=== PATIENT | male | born 1950 | race Caucasian/White ===

== ENCOUNTER 2024-12-29 15:14 | Outpatient (AMB) | payer MEDICARE, SELFPAY ==
--- OUTSIDE RECORDS SUMMARY | 2024-12-29 15:17 | XMS_ITS | Clinical Summary ---
Author Organization [facility] Address [address] [place] [phone] Phone Care Team Providers Care Broadcast Operations Director Name Role Phone Physician, Pcp Unknown Primary Care Provider Neena vailable Allergies No known active allergies Medications cloNIDine (CATAPRES) 0.1 mg tablet Take 1 tablet (0.1 mg total) by mouth 2 (two) times a day if needed for high blood pressure. Active fluticasone propion-salmet Kathrine (ADVAIR DISKUS) 100-50 mcg/dose diskus inhaler Inhale 1 puff by mouth 2 (two) times a day. Rinse mouth with water after use to reduce aftertaste and incidence of candidiasis. Do not swallow. Active levothyroxine (SYNTHROID, LEVOTHROID) 125 mcg tablet Take 1 tablet (125 mcg total) by mouth 1 (one) time each day. Active traZODone (DESYREL) 50 mg tablet Take 2 tablets (100 mg total) by mouth at bedtime. Active nicotine (NICODERM CQ) 7 mg/[address] 1 patch on the skin 1 (one) time per week. Active folic acid (FOLVITE) 1 mg tablet Take 1 tablet (1 mg total) by mouth 1 (one) time each day. Active pyridoxine (B-6) 50 mg tablet Take 1 tablet (50 mg total) by mouth 1 (one) time each day. Active thiamine 100 mg tablet Take 1 tablet (100 mg total) by mouth 2 (two) times a day. Active PARoxetine (PAXIL) 40 mg tablet Take 1 tablet (40 mg total) by mouth 1 (one) time each day. Active ipratropium-al buteroL (COMBIVENT RESPIMAT) 20-100 mcg/actuation inhaler Inhale 2 puffs by mouth 2 (two) times a day. Active simvastatin (ZOCOR) 20 mg tablet Take 1 tablet (20 mg total) by mouth 1 (one) time each day in the morning. Active finasteride (PROSCAR) 5 mg tablet Take 1 tablet (5 mg total) by mouth 1 (one) time each day. Do not crush, chew, or split. Active tamsulosin (FLOMAX) 0.4 mg 24 hr capsule Take 1 capsule (0.4 mg total) by mouth at bedtime. Capsules should be taken 30 minutes following the same meal each day. Active QUEtiapine (SEROquel) 25 mg tablet Take 1 tablet (25 mg total) by mouth at bedtime. 30 each 1 01/11/20 25 Active predniSONE (DELTASONE) 20 mg tablet Take 1 tablet (20 mg total) by mouth 1 (one) time each day. Start 12/03 take 3 tabs daily then 2 tabs daily for 3 days then 1 tab for 3 days 12/10/19 25 Discontinu ed(Prescri elenita Discontinu ed) Encounters Date Type Department Care Team Description 12/10/2024 11:10 AM EST - 12/11/2024 11:42 AM EST Emergency [facility] [address] [place] [phone] Anxiety (Primary Dx); MDD (major depressive disorder), recurrent episode, mild (CMS/HCC) Discharge Disposition: Home or Self Care from Last 3 Months Social History Tobacco Use Types Packs/Day Years Used Date Smoking Tobacco: Never Assessed Sex and Gender Information Value Date Recorded Sex Assigned at Not on file Legal Sex Male 5:04 AM EST Gender Identity Male 12/10/2024 12:22 PM EST Sexual Orientation Not on file Last Filed Vital Signs Vital Sign Reading Time Taken Comments Blood Pressure 123/86 12/10/2024 11:12 AM EST Pulse 98 12/10/2024 11:12 AM EST Temperature 36.4 ??C (97.5 ??F) 12/10/2024 11:[address] Respiratory Rate 18 12/10/2024 11:12 AM EST Oxygen Saturation 95% 12/10/2024 11:12 AM EST Inhaled Oxygen Concentration - - Weight 70.3 kg (155 lb) 12/10/2024 11:12 AM EST Height 170.2 cm (5' 7 ) 12/10/2024 11:12 AM EST Body Mass Index 24.28 12/10/2024 11:12 AM EST Plan of Treatment Health Maintenance Due Date Last Done Comments DTaP,Tdap,and Td Vaccines (1 - Tdap) 1969 Pneumococcal Vaccine: 50+ Years (1 of 2 - PCV) 1969 Zoster Vaccines (1 of 2) 2000 RSV Immunization Patients 60 + Years Old (1 - Risk 60-74 years 1-dose series) 2010 COVID-19 Vaccine ( - 2023-2 5 season) 2024 Influenza Vaccine (#1) 2024 Abdominal Aortic Aneurysm (AAA) Screen 12/10/2024 Cholesterol Screening (Lipid Panel) 12/10/2024 Depression Screening 12/10/2024 Falls Risk Assessment 12/10/2024 Hepatitis C Screening 12/10/2024 Medicare Annual Wellness Visit 12/10/2024 Social Influencers of Health Screening 12/10/2024 Colorectal Cancer Screening: FIT-DNA (Cologuard) 08/31/2027 08/31/2024, 08/31/2024, 08/14/2021 HIB Vaccines Aged Out No longer eligi ble based on patient's age to complete this topic HPV Vaccines Aged Out No longer eligi ble based on patient's age to complete this topic Hepatitis A Vaccines Aged Out No long er eligible based on patient's age to complete this topic Hepatitis B Vaccines Aged Out No long er eligible based on patient's age to complete this topic IPV Vaccines Aged Out No longer eligi ble based on patient's age to complete this topic MMR Vaccines Aged Out No longer eligi ble based on patient's age to complete this topic Meningococcal ACWY Vaccine Aged Out N o longer eligible based on patient's age to complete this topic Meningococcal B Vacine Aged Out No lo nger eligible based on patient's age to complete this topic RSV Immunization Patients Under 20 months Aged Out No longer eligible b ased on patient's age to complete this topic Varicella Vaccines Aged Out No longer eligible based on patient's age to complete this topic Procedures Procedure Name Priority Date/Time Associated Diagnosis Comments CONNOR URINE CULTURE TUBE STAT 12/10/2024 3:02 PM EST URINALYSIS WITH MICROSCOPIC STAT 12/10/2024 3:02 PM EST DRUG ABUSE SCREEN, URINE STAT 12/10/2024 3:02 PM EST URINALYSIS WITH MICROSCOPIC STAT 12/10/2024 3:02 PM EST CBC WITH AUTO DIFFERENTIAL STAT 12/10/2024 2:15 PM EST THYROID STIMULATING HORMONE STAT 12/10/2024 2:15 PM EST COMPREHENSIVE METABOLIC PANEL STAT 12/10/2024 2:15 PM EST CBC AND DIFFERENTIAL STAT 12/10/2024 2:15 PM EST from Last 3 Months Results * (ABNORMAL) Urinalysis with microscopic (12/10/2024 3:02 PM EST) Color, Urine Yellow Yellow LAB URINALYSIS - AUTOMATED METHOD 12/10/2024 4:34 PM EST [facility] Clarity, Urine Clear Clear LAB URINALYSIS - AUTOMATED METHOD 12/10/2024 4:34 PM EST [facility] Specific [place] Urine 1.026 1.003 - 1.030 LAB URINALYSIS - AUTOMATED METHOD 12/10/2024 4:34 PM EST [facility] pH, Urine 5.5 5.0 - 7.5 pH LAB URINALYSIS - AUTOMATED METHOD 12/10/2024 4:34 PM EST [facility] Leukocytes, Urine Negative Negative WBCs/mcL LAB URINALYSIS - AUTOMATED METHOD 12/10/2024 4:34 PM [facility] Nitrite, Urine Negative Negative LAB URINALYSIS - AUTOMATED METHOD 12/10/2024 4:34 PM [facility] Protein, Urine Trace(A) Negative mg/dL LAB URINALYSIS - AUTOMATED METHOD 12/10/2024 4:34 PM EST [facility] Glucose, Urine Negative Negative mg/dL LAB URINALYSIS - AUTOMATED METHOD 12/10/2024 4:34 PM EST [facility] Ketones, Urine 1+(A) Negative mg/dL LAB URINALYSIS - AUTOMATED METHOD 12/10/2024 4:34 PM EST [facility] Urobilinogen, Urine Normal Normal mg/dL LAB URINALYSIS - AUTOMATED METHOD 12/10/2024 4:34 PM EST [facility] Blood, Urine Negative Negative LAB URINALYSIS - AUTOMATED METHOD 12/10/2024 4:34 PM [facility] Bilirubin, Urine Negative Negative mg/dL LAB URINALYSIS - AUTOMATED METHOD 12/10/2024 4:34 PM EST [facility] RBC, Urine 0 0 - 3 /HPF LAB URINALYSIS - AUTOMATED METHOD 12/10/2024 4:34 PM EST [facility] WBC, Urine <1 0 - 6 /HPF LAB URINALYSIS - AUTOMATED METHOD 12/10/2024 4:34 PM EST [facility] Bacteria, Urine 1+(A) None /HPF LAB URINALYSIS - AUTOMATED METHOD 12/10/2024 4:34 PM EST [facility] Mucus, Urine 4+ No ref range /HPF LAB URINALYSIS - AUTOMATED METHOD 12/10/2024 4:34 PM [facility] Urine Urine specimen obtained by clean catch procedure / Unknown Non-blood Collection / Unknown 12/10/2024 3:02 PM EST 12/10/2024 3:09 PM EST us Sherly Castillo MD LAB URINE ORDERABLES Final Result [facility] [address] [place] [address], [place] [phone] * Connor urine culture tube (12/10/2024 3:02 PM EST) [facility] Extra Tube Hold for add-ons. 12/10/2024 5:02 PM EST [facility] Comment:Auto resulted. Urine Urine specimen obtained by clean catch procedure / Unknown Non-blood Collection / Unknown 12/10/2024 3:02 PM EST 12/10/2024 3:10 PM EST us Sherly Castillo MD LAB URINE ORDERABLES Final Result [facility] [address] [place] [address], [place] [phone] * Drug abuse screen, urine (12/10/2024 3:02 PM EST) [facility] Amphetamine Screen, Ur Negative Negative LAB CHEMISTRY METHOD 12/10/2024 3:37 PM EST [facility] Barbiturate Screen, Ur Negative Negative LAB CHEMISTRY METHOD 12/10/2024 3:37 PM EST [facility] Benzodiazepine Screen, Ur Negative Negative LAB CHEMISTRY METHOD 12/10/2024 3:37 PM EST [facility] Opiate Screen, Ur Negative Negative LAB CHEMISTRY METHOD 12/10/2024 3:37 PM EST [facility] Comment:NOTE: Oxycodone is n ot sufficiently detected by this screening assay. A more sensitive assay is available upon request. Cocaine Screen, Ur Negative Negative LAB CHEMISTRY METHOD 12/10/2024 3:37 PM EST [facility] Cannabinoid (THC) Screen, Ur Negative Negative LAB CHEMISTRY METHOD 12/10/2024 3:37 PM EST [facility] PCP Scrn, Ur Negative Negative LAB CHEMISTRY METHOD 12/10/2024 3:37 PM EST [facility] Urine Urine specimen obtained by clean catch procedure / Unknown Non-blood Collection / Unknown 12/10/2024 3:02 PM EST 12/10/2024 3:10 PM EST Narrative [facility] - 12/10/2024 3:37 PM EST This is a screening test only. Confirmatory testing is available if requested within 48 hours of report. This assay does not detect synthetic opioids. Drugs Analyzed Initial Test Cutoff Concentrations Amphetamines ? 1000 ng/mL Barbiturates ?200 ng/mL Benzodiazepines ?? 200 ng/mL Cannabinoids ? 50 ng/mL Cocaine ? 300 ng/mL Opiates ? 300 ng/mL Phencyclidine ?25 ng/mL Sehrly Castillo MD LAB URINE ORDERABLES Final Result [facility] [address] [place] [address], [place] [phone] * (ABNORMAL) CBC auto differential (12/10/2024 2:15 PM EST) WBC 14.6(H) 4.1 - 11.0 K/mcL LAB HEMETOLOGY METHOD 12/10/2024 2:31 PM EST [facility] RBC 5.82 4.60 - 6.10 M/mcL LAB HEMETOLOGY METHOD 12/10/2024 2:31 PM EST [facility] Hemoglobin 17.6 13.5 - 18.0 g/dL LAB HEMETOLOGY METHOD 12/10/2024 2:31 PM EST [facility] Hematocrit 50.7 41.0 - 53.0 % LAB HEMETOLOGY METHOD 12/10/2024 2:31 PM EST [facility] MCV 87.1 80.0 - 95.0 FL LAB HEMETOLOGY METHOD 12/10/2024 2:31 PM [facility] MCH 30.2 27.0 - 32.0 pcg LAB HEMETOLOGY METHOD 12/10/2024 2:31 PM [facility] MCHC 34.7 32.0 - 36.0 g/dL LAB HEMETOLOGY METHOD 12/10/2024 2:31 PM [facility] RDW 11.9 10.5 - 14.5 % LAB HEMETOLOGY METHOD 12/10/2024 2:31 PM [facility] Platelets 339 150 - 450 K/mcL LAB HEMETOLOGY METHOD 12/10/2024 2:31 PM [facility] MPV 10.3 9.4 - 12.4 FL LAB HEMETOLOGY METHOD 12/10/2024 2:31 PM [facility] Neutrophils Relative 66.5 35.0 - 75.0 % LAB HEMETOLOGY METHOD 12/10/2024 2:31 PM [facility] Lymphocytes Relative 23.6 16.0 - 52.0 % LAB HEMETOLOGY METHOD 12/10/2024 2:31 PM [facility] Monocytes Relative 8.2 0.0 - 12.0 % LAB HEMETOLOGY METHOD 12/10/2024 2:31 PM [facility] Eosinophils Relative 0.6 0.0 - 5.0 % LAB HEMETOLOGY METHOD 12/10/2024 2:31 PM [facility] Basophils Relative 0.3 0.0 - 4.0 % LAB HEMETOLOGY METHOD 12/10/2024 2:31 PM [facility] Immature Granulocytes Relative 0.8 0.0 - 1.0 % LAB HEMETOLOGY METHOD 12/10/2024 2:31 PM [facility] Neutrophils Absolute 9.68(H) 1.80 - 7.70 K/mcL LAB HEMETOLOGY METHOD 12/10/2024 2:31 PM EST [facility] Lymphocytes Absolute 3.44 1.20 - 4.80 K/mcL LAB HEMETOLOGY METHOD 12/10/2024 2:31 PM EST [facility] Monocytes Absolute 1.19(H) 0.00 - 1.00 K/mcL LAB HEMETOLOGY METHOD 12/10/2024 2:31 PM EST [facility] Eosinophils Absolute 0.09 0.00 - 0.50 K/mcL LAB HEMETOLOGY METHOD 12/10/2024 2:31 PM EST [facility] Basophils Absolute 0.05 0.00 - 0.20 K/mcL LAB HEMETOLOGY METHOD 12/10/2024 2:31 PM EST [facility] Immature Granulocytes Absolute 0.11(H) 0.00 - 0.10 K/mcL LAB HEMETOLOGY METHOD 12/10/2024 2:31 PM EST [facility] Blood Venous blood specimen / Unknown Venipuncture / Unknown 12/10/2024 2:15 PM EST 12/10/2024 2:25 PM EST Sherly Castillo MD LAB BLOOD ORDERABLES Final Result [facility] [address] [place] [id number], * Thyroid stimulating hormone (12/10/2024 2:15 PM EST) TSH 1.90 0.55 - 4.78 mcIU/mL LAB CHEMISTRY METHOD 12/10/2024 3:39 PM EST [facility] Blood Venous blood specimen / Unknown Venipuncture / Unknown 12/10/2024 2:15 PM EST 12/10/2024 2:25 PM EST us Sherly Castillo MD LAB BLOOD ORDERABLES Final Result [facility] [address] [place] [address], [place] [phone] * (ABNORMAL) Comprehensive metabolic panel (12/10/2024 2:15 PM EST) Sodium 135(L) 136 - 145 mmol/L LAB CHEMISTRY METHOD 12/10/2024 3:21 PM EST [facility] Potassium 4.3 3.5 - 5.1 mmol/L LAB CHEMISTRY METHOD 12/10/2024 3:21 PM EST [facility] Chloride 100 98 - 107 mmol/L LAB CHEMISTRY METHOD 12/10/2024 3:21 PM EST [facility] CO2 25 20 - 31 mmol/L LAB CHEMISTRY METHOD 12/10/2024 3:21 PM EST [facility] Anion Gap 10 5 - 15 LAB CHEMISTRY METHOD 12/10/2024 3:21 PM EST [facility] Comment:The reference range has been updated per farm tractor operator recommendation. Glucose 111(H) 70 - 99 mg/dL LAB CHEMISTRY METHOD 12/10/2024 3:21 PM EST [facility] BUN 16 9 - 23 mg/dL LAB CHEMISTRY METHOD 12/10/2024 3:21 PM EST [facility] Creatinine 0.99 0.70 - 1.30 mg/dL LAB CHEMISTRY METHOD 12/10/2024 3:21 PM EST [facility] eGFR 80 >=60 mL/min/1. 73m2 LAB CHEMISTRY METHOD 12/10/2024 3:21 PM [facility] Comment:Calculation based on the??Chronic Kidney Disease Epidemiology Collaboration (CKD-EPI) equation refit??without adjustment for race. BUN/Creatinine Ratio 16.2 10.0 - 20.0 LAB CHEMISTRY METHOD 12/10/2024 3:[address] [facility] Calcium 9.6 8.3 - 10.6 mg/dL LAB CHEMISTRY METHOD 12/10/2024 3:21 PM EST [facility] AST (SGOT) 23 13 - 40 unit/L LAB CHEMISTRY METHOD 12/10/2024 3:21 PM [facility] ALT (SGPT) 35 9 - 40 unit/L LAB CHEMISTRY METHOD 12/10/2024 3:21 PM EST [facility] Alkaline Phosphatase 92 50 - 136 unit/L LAB CHEMISTRY METHOD 12/10/2024 3:21 PM EST [facility] Total Protein 6.3 5.7 - 8.2 g/dL LAB CHEMISTRY METHOD 12/10/2024 3:21 PM [facility] Globulin, Total 2.6(L) 2.7 - 4.3 g/dL LAB CHEMISTRY METHOD 12/10/2024 3:21 PM EST [facility] A/G Ratio 1.4 LAB CHEMISTRY METHOD 12/10/2024 3:21 PM EST [facility] Total Bilirubin 0.8 0.0 - 1.0 mg/dL LAB CHEMISTRY METHOD 12/10/2024 3:21 PM EST [facility] Albumin 3.7 3.2 - 4.5 g/dL LAB CHEMISTRY METHOD 12/10/2024 3:21 PM EST [facility] Blood Venous blood specimen / Unknown Venipuncture / Unknown 12/10/2024 2:15 PM EST 12/10/2024 2:25 PM EST us Sherly Castillo MD LAB BLOOD ORDERABLES Final Result [facility] [address] [place] [address], [place] [phone] from Last 3 Months Insurance [employer] Advance Directives * Full Code - Default (Latest Code Status on File) Date Activated Date Inactivated Comments 12/10/2024 1:03 PM 12/11/2024 1:47 PM This is order is used when code status has not been discussed with the patient, or code status is otherwise unknown/unconfirmed To update the patient's code status, place a code status order. Do not modify or discontinue any currently active code status orders. Care Teams Broadcast Operations Director Relationship Specialty Start Date End Date Physician, Pcp Unknown PCP - General 12/10/24
--- OUTSIDE RECORDS SUMMARY | 2024-12-29 15:17 | XMS_ITS | Encounter Summary ---
Author Organization [facility] Address [address] [place] [address] Care Team Providers Care Chalk Tester Name Role Phone Physician, Pcp Unknown Primary Care Provider Neena vailable Reason for Visit * Reason Comments Anxiety Per EMS patient went to [facility] on Friday to be admitted and they discharged him. They were told he could come here for admission. Suicidal Patient came in [facility] the ED with EMS. Patient came to [facility] to involuntary. Patient says he is having, racing thoughts . He says that he can't, turn off his mind.The patient admits the he has been having SI. Patient says that he would take pills or stab himself in the stomach with a knife. Patient admits that he has been having feelings of wanting to hurt his daughter.He says that he does not have a plan for that. Patient denies AH.Patient says that the covers on the bed move but I'm not doing it . 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 Encounter Details Date Type Department Care Team (Late Contact Info) Description 12/10/2024 11:10 AM EST - 12/11/2024 11:42 AM EST Emergency [facility] ([facility]) [address] [place] [id number] Anxiety (Primary Dx); MDD (major depressive disorder), recurrent episode, mild (CMS/HCC) Discharge Disposition: Home or Self Care Social History Tobacco Use Types Packs/Day Years Used Date Smoking Tobacco: Never Assessed Sex and Gender Information Value Date Recorded Sex Assigned at Not on file Legal Sex Male 5:04 AM EST Gender Identity Male 12/10/2024 12:22 PM EST Sexual Orientation Not on file documented as of this encounter Last Filed Vital Signs Vital Sign Reading [...] Mass Index 24.28 12/10/2024 11:12 AM EST documented in this encounter Discharge Instructions * Discharge Instructions* Judy Alejandre LMSW - 12/11/2024 11:24 AM EST You have declined Mobile Crisis Outreach services at the current time. If you would like a visit inthe future, or for additional support, please contact Mobile Crisis Outreach directly at [phone]. You are being discharged at your request and assurance of safety. If you feel at risk to harm yourself or others, please return to [facility], go to the nearest ER, or call 911. Please contact either Car Rosen or Viktor Quinonez to schedule an initial intake appt. to followup per your [facility] discharge plan. * Attachments The following attachments cannot be sent through Care Everywhere. * Anxiety Disorder (Turkish) * Antidepressants: General Info (Turkish) documented in this encounter Medications at Time of Discharge QUEtiapine (SEROquel) 25 mg tablet Take 1 tablet (25 mg total) by mouth at bedtime. 30 each 1 12/11/2024 5 cloNIDine (CATAPRES) 0.1 mg tablet Take 1 tablet (0.1 mg total) by mouth 2 (two) times a day if needed for high blood pressure. finasteride (PROSCAR) 5 mg tablet Take 1 tablet (5 mg total) by mouth 1 (one) time each day. Do not crush, chew, or split. fluticasone propion-salmeter oL (ADVAIR DISKUS) 100-50 mcg/dose diskus inhaler Inhale 1 puff by mouth 2 (two) times a day. Rinse mouth with water after use to reduce aftertaste and incidence of candidiasis. Do not swallow. folic acid (FOLVITE) 1 mg tablet Take 1 tablet (1 mg total) by mouth 1 (one) time each day. ipratropium-albu teroL (COMBIVENT RESPIMAT) 20-100 mcg/actuation inhaler Inhale 2 puffs by mouth 2 (two) times a day. levothyroxine (SYNTHROID, LEVOTHROID) 125 mcg tablet Take 1 tablet (125 mcg total) by mouth 1 (one) time each day. nicotine (NICODERM CQ) 7 mg/[address] 1 patch on the skin 1 (one) time per week. PARoxetine (PAXIL) 40 mg tablet Take 1 tablet (40 mg total) by mouth 1 (one) time each day. pyridoxine (B-6) 50 mg tablet Take 1 tablet (50 mg total) by mouth 1 (one) time each day. simvastatin (ZOCOR) 20 mg tablet Take 1 tablet (20 mg total) by mouth 1 (one) time each day in the morning. tamsulosin (FLOMAX) 0.4 mg 24 hr capsule Take 1 capsule (0.4 mg total) by mouth at bedtime. Capsules should be taken 30 minutes following the same meal each day. thiamine 100 mg tablet Take 1 tablet (100 mg total) by mouth 2 (two) times a day. traZODone (DESYREL) 50 mg tablet Take 2 tablets (100 mg total) by mouth at bedtime. documented as of this encounter Ordered Prescriptions Prescription Sig Dispense Quantity Refills Last Filled Start Date End Date QUEtiapine (SEROquel) 25 mg tablet Take 1 tablet (25 mg total) by mouth at bedtime. 30 each 1 12/11/2024 01/10/2025 documented in this encounter Discharge Disposition Disposition Code Departure Means Destination Comment s Home or Self Fdc documented in this encounter Progress Notes * Nhi Galarza RN - 12/11/2024 9:01 AM EST Problem: Safety: Suicide Risk Goal: Will remain free from injury to self Outcome: Progressing Problem: Self Concept: Suicide Risk Goal: Will verbalize feelings Outcome: Progressing Goal: Will verbalize positive feelings about self Outcome: Progressing Problem: Patient Specific Problem: Suicide Risk Goal: Patient Specific Outcome Outcome: Progressing * Kim Banuelos RN - 12/11/2024 12:32 AM EST Problem: Safety: Suicide Risk Goal: Will remain free from injury to self Outcome: Progressing Problem: Self Concept: Suicide Risk Goal: Will verbalize feelings Outcome: Progressing Goal: Will verbalize positive feelings about self Outcome: Not Progressing * Nhi Galarza RN - 12/10/2024 5:40 PM EST Care plan implemented. documented in this encounter Miscellaneous Notes * Psych ED Nursing Observation Note - Nhi Galarza RN - 12/11/2024 11:40 AM EST Discharge instructions discussed with pt, his daughter, and his son-in-law, who voiced understanding and posed no further questions. Pt left the unit with all personal belongings and pertinent paperwork. * Psych ED Wave Solder Offbearer Note - Judy Alejandre LMSW - 12/11/2024 11:24 AM EST Patient's daughter was provided two referrals for therapy in [place] as patient lives out of state. Patient's daughter agreed to follow up with them to set this up. Patient will be transported by his daughter to her home. Health Home Case Management was not completed as patient is out of state and does not have medicaid. MCO and/or Contact was declined Risk level determination at arrival was low and d/c was low. Treatment goals explored and resolved Suicide universal precautions reduction information sheet provided at time of discharge Patient denies suicidal ideation at the current time and appears ready for discharge This journalists and other writers asked patient to consider completion of survey. Blank survey provided. This journalists and other writers met with patient's daughter to discuss aftercare services since patient lives out of state. This journalists and other writers provided her with two therapy referrals that she can reach out to for her father. She was in agreement to contact them for her father. Patient's daughter feels safe to bring patient back to her home. * Psych ED Wave Solder Offbearer Note - Ladonna Brambila LMSW - 12/11/2024 11:20 AM EST HIRAM and Judy Waterman RN spoke with patient's daughter. She is receptive to help for her dad and will be a strong support for him. He will be staying with her for a few days and then she will take him home to [place]. Patient's daughter will stay and tour the [facility] with him andexplore other options for community outreach. * Psych ED DC Note - Pilar Orozco MD - 12/11/2024 8:42 AM EST [facility] Discharge Note Patient Name: Stephen Murphy Patient Arrival: 12/10/2024 11:10 AM DON[facility] First Contact: Yes (12/10/24 1257 : Corie Scruggs NP) Chart Reviewed and Patient Examined Discharge to: Discharge Destination: Home History of Present Illness HPI History provided by: Patient, Relative Presenting symptoms: Anxiety, Depression, Racting thoughts, Agitation, Suicidal statement(s) Patient accompanied by: Child Degree of incapacity (severity): Severe Duration: on going Timing: Intermittent Progression: Worsening Chronicity: Recurrent Context: Alcohol use, Medication(s), Recent medication change Time since last psychoactive medication taken: 12/10/2024 Relieved by: Antidepressants Associated symptoms: Anxiety, Insomnia, Irritability Risk factors: Substance abuse History Past Collateral & Treatment History Collateral & Treatment History Collateral/Treatment History: PROVIDER/COLLATERAL CONTACT INFO CONTACT MADE # OF CONTACT ATTEMPTS TX LOCATION DATE OF LAST TX TYPE OF TX REASON/DX LENGTH OF STAY TX HELPFUL TX DRUG OR ALCOHOL REHAB TX RECORDS REQUESTED COMMENTS PCP Kati Rubio M.D. [facility] [address] [place] [address] Tel. [phone] [WW1.1] [WW1.1] Attribution WW1.1 Tatum Prasad RN 12/10/24 11:30 Past Suicide / Self Harm History Suicide/Self-Harm History Self Harm History Suicide History Substance Use Family History No family history on file. Social History Social History Substance and Sexual Activity Sexual Activity Not on file Medical/Surgical History No past medical history on file. No past surgical history on file. Care Coordination/Collateral: Review of Systems Psychiatric Psychiatric: Depression, Anxiety ROS Allergic/Immunologic: No pertinent findings Cardiovascular: No pertinent findings Constitutional Symptoms: No pertinent findings Endocrine: No pertinent findings Ears, Nose, Mouth, and Throat: No pertinent findings Eyes: No pertinent findings Gastrointestinal: No pertinent findings Genitourinary: No pertinent findings Hematological/Lymphatic: No pertinent findings Musculoskeletal: No pertinent findings Neurological: No pertinent findings Respiratory: No pertinent findings Skin: No pertinent findings Physical Dexterity Muscle Strength and Tone: Strength and tone within normal limits Gait and Station: Gait steady and station within normal limits Vital Signs Visit Vitals BP 123/86 (BP Location: Right arm, Patient Position: Sitting) Pulse 98 Temp 36.4 ??C (97.5 ??F) (Oral) Resp 18 Ht 1.702 m (67 ) Wt 70.3 kg (155 lb) SpO2 95% BMI 24.28 kg/m?? BSA 1.81 m?? Psychiatric Exam Mental Status Exam Constitutional Exam: Appears stated age Build/Stature: WNL Posture: WNL Hygiene/Grooming: Fair Hygiene Clothing: Appropriately dressed Speech: Clear Psychomotor Activity: WNL Mood: Euthymic Affect: Full Perceptual Disturbances: None Delusions: None Thought Process: Linear and logical Thought Content: WNL Suicidal ideation: Denies suicidal thoughts Homicidal Ideation: Denies homicidal thoughts Remote Memory: Intact Recent Memory: Intact Insight: Fair Judgment: Fair Orientation: Appropriately oriented x3 Attitude Toward Examiner: Cooperative Associations: No loosening evident Fund of Knowledge: Fair Concentration: Fair Attention Span: Fair Cognition: Intact Current Coping Skills: Fair Language: Fluent in Turkish Basic Living Needs Is the patient unable to meet their basic living needs upon admission to the Behavioral Health ED?:NO, patient is meeting their basic living needs Hawkins Suicide Severity Rating Scale (Screener/Recent Self-Report) 1. Wish to be (Past 1 Month): Yes 2. Non-Specific Active Suicidal Thoughts (Past 1 Month): Yes 3. Active Suicidal Ideation with any Methods (Not Plan) Without Intent to Act (Past 1 Month): Yes 4. Active Suicidal Ideation with Some Intent to Act, Without Specific Plan (Past 1 Month): Yes 5. Active Suicidal Ideation with Specific Plan and Intent (Past 1 Month): (pt shares thoughts to stab self but no intent and wants the help) 6. Suicidal Behavior (Lifetime): No Calculated C-SSRS Risk Score (Lifetime/Recent): High Risk Risk Assessment - Risk Factors Diagnoses & Symptoms of Concern:: Depression, Hopelessness or despair Access to Lethal Means:: (denies access) Risk Assessment - Protective Factors Protective Factors:: Cultural, spiritual, or moral attitudes against suicide, Engaged in work or school, Expression of hope for the future Suicide Risk Level:: Low Clinical Formulation:: NO harm. Wants to live for family and self Firearms Was threat made to harm self/others with a firearm?: No Does the patient own or have access to firearms?: No C-SSRS Suicide Screening: Hawkins Suicide Severity Rating Scale (Screener/Recent Self-Report) 1. Wish to be (Past 1 Month): Yes 2. Non-Specific Active Suicidal Thoughts (Past 1 Month): Yes 3. Active Suicidal Ideation with any Methods (Not Plan) Without Intent to Act (Past 1 Month): Yes 4. Active Suicidal Ideation with Some Intent to Act, Without Specific Plan (Past 1 Month): Yes 5. Active Suicidal Ideation with Specific Plan and Intent (Past 1 Month): (pt shares thoughts to stab self but no intent and wants the help) 6. Suicidal Behavior (Lifetime): No Calculated C-SSRS Risk Score (Lifetime/Recent): High Risk Risk Factors: Risk Assessment - Risk Factors Diagnoses & Symptoms of Concern:: Depression, Hopelessness or despair Access to Lethal Means:: (denies access) Protective Factors: Risk Assessment - Protective Factors Protective Factors:: Cultural, spiritual, or moral attitudes against suicide, Engaged in work or school, Expression of hope for the future Suicide Risk Level:: Low Clinical Formulation:: NO harm. Wants to live for family and self Labs Obtained /Results: Labs Reviewed COMPREHENSIVE METABOLIC PANEL - Abnormal Result Value Sodium 135 (*) Potassium 4.3 Chloride 100 CO2 25 Anion Gap 10 Glucose 111 (*) BUN 16 Creatinine 0.99 eGFR 80 BUN/Creatinine Ratio 16.2 Calcium 9.6 AST (SGOT) 23 ALT (SGPT) 35 Alkaline Phosphatase 92 Total Protein 6.3 Globulin, Total 2.6 (*) A/G Ratio 1.4 Total Bilirubin 0.8 Albumin 3.7 CBC WITH AUTO DIFFERENTIAL - Abnormal WBC 14.6 (*) RBC 5.82 Hemoglobin 17.6 Hematocrit 50.7 MCV 87.1 MCH 30.2 MCHC 34.7 RDW 11.9 Platelets 339 MPV 10.3 Neutrophils Relative 66.5 Lymphocytes Relative 23.6 Monocytes Relative 8.2 Eosinophils Relative 0.6 Basophils Relative 0.3 Immature Granulocytes Relative 0.8 Neutrophils Absolute 9.68 (*) Lymphocytes Absolute 3.44 Monocytes Absolute 1.19 (*) Eosinophils Absolute 0.09 Basophils Absolute 0.05 Immature Granulocytes Absolute 0.11 (*) URINALYSIS WITH MICROSCOPIC - Abnormal Color, Urine Yellow Clarity, Urine Clear Specific Rebuck Urine 1.026 pH, Urine 5.5 Leukocytes, Urine Negative Nitrite, Urine Negative Protein, Urine Trace (*) Glucose, Urine Negative Ketones, Urine 1+ (*) Urobilinogen, Urine Normal Blood, Urine Negative Bilirubin, Urine Negative RBC, Urine 0 WBC, Urine <1 Bacteria, Urine 1+ (*) Mucus, Urine 4+ THYROID STIMULATING HORMONE - Normal TSH 1.90 DRUG ABUSE SCREEN, URINE - Normal Amphetamine Screen, Ur Negative Barbiturate Screen, Ur Negative Benzodiazepine Screen, Ur Negative Opiate Screen, Ur Negative Cocaine Screen, Ur Negative Cannabinoid (THC) Screen, Ur Negative PCP Scrn, Ur Negative Narrative: This is a screening test only. Confirmatory testing is available if requested within 48 hours of report. This assay does not detect synthetic opioids. Drugs Analyzed Initial Test Cutoff Concentrations Amphetamines 1000 ng/mL Barbiturates 200 ng/mL Benzodiazepines 200 ng/mL Cannabinoids 50 ng/mL Cocaine 300 ng/mL Opiates 300 ng/mL Phencyclidine 25 ng/mL CBC AND DIFFERENTIAL Narrative: The following orders were created for panel order CBC and differential. Procedure Abnormality Status --------- ------ CBC auto differential[[id number]] Abnormal Final result Please view results for these tests on the individual orders. URINALYSIS WITH MICROSCOPIC Narrative: The following orders were created for panel order Urinalysis with microscopic. Procedure Abnormality Status --------- ------ Urinalysis with microsc...[[id number]] Abnormal Final result Connor urine culture tube[[id number]] Final result Please view results for these tests on the individual orders. Other Studies: Assessment / Treatment Plan / Discharge Plan Discharge Plan and Assessment Discharge Plan/Assessment #1: dc Discharge Plan/Assessment #2: offer outpatient Hospital Course/Progress Towards Discharge Hospital Course: Patient has no thoughts of harm to self or others.He is future oriented and wants to live for family and self Said he is not feeling safe driving at this time. Not paranoid and not delusional and not psychoticand not suicidal Patient's lethality of harming self is minimal. Not suicidal or homicidal at this time. Staff comfortable with the discharge. Can be safely discharge at this time. . Urged to keep all outpatient appointments and to refrain from using drugs and alcohol at this time Progress Towards Discharge: Discharge Medications Current Discharge Medication List START taking these medications Details QUEtiapine (SEROquel) 25 mg tablet Take 1 tablet (25 mg total) by mouth at bedtime. Qty: 30 each, Refills: 1 CONTINUE these medications which have NOT CHANGED Details cloNIDine (CATAPRES) 0.1 mg tablet Take 1 tablet (0.1 mg total) by mouth 2 (two) times a day if needed for high blood pressure. finasteride (PROSCAR) 5 mg tablet Take 1 tablet (5 mg total) by mouth 1 (one) time each day. Do notcrush, chew, or split. fluticasone propion-salmeteroL (ADVAIR DISKUS) 100-50 mcg/dose diskus inhaler Inhale 1 puff by mouth 2 (two) times a day. Rinse mouth with water after use to reduce aftertaste and incidence of candidiasis. Do not swallow. folic acid (FOLVITE) 1 mg tablet Take 1 tablet (1 mg total) by mouth 1 (one) time each day. ipratropium-albuteroL (COMBIVENT RESPIMAT) 20-100 mcg/actuation inhaler Inhale 2 puffs by mouth 2 (two) times a day. levothyroxine (SYNTHROID, LEVOTHROID) 125 mcg tablet Take 1 tablet (125 mcg total) by mouth 1 (one)time each day. nicotine (NICODERM CQ) 7 mg/[address] 1 patch on the skin 1 (one) time per week. PARoxetine (PAXIL) 40 mg tablet Take 1 tablet (40 mg total) by mouth 1 (one) time each day. pyridoxine (B-6) 50 mg tablet Take 1 tablet (50 mg total) by mouth 1 (one) time each day. simvastatin (ZOCOR) 20 mg tablet Take 1 tablet (20 mg total) by mouth 1 (one) time each day in the morning. tamsulosin (FLOMAX) 0.4 mg 24 hr capsule Take 1 capsule (0.4 mg total) by mouth at bedtime. Capsules should be taken 30 minutes following the same meal each day. thiamine 100 mg tablet Take 1 tablet (100 mg total) by mouth 2 (two) times a day. traZODone (DESYREL) 50 mg tablet Take 2 tablets (100 mg total) by mouth at bedtime. Diagnosis 1. Anxiety 2. MDD (major depressive disorder), recurrent episode, mild (CMS/[facility]) Billing Code: 46087 * Psych ED Note - Judy Alejandre LMSW - 12/10/2024 1:50 PM EST The patient has been admitted to [facility] on [facility] M[facility] ??9.40 status. A copy of the Status & Rights has been given to the patient and a copy has been forwarded to [facility] [employer] [employer]. * Psych ED Provider Note - Corie Scruggs NP - 12/10/2024 10:52 AM EST PSYCHIATRIC INITIAL ASSESSMENT Patient Name: Stephen Murphy Patient Arrival: 12/10/2024 11:10 AM [facility] First Contact: Yes (01/31/25 1257 : Corie Scruggs NP) Chief Complaint Chief Complaint Patient presents with Anxiety Per EMS patient went to [facility] on Friday to be admitted and they discharged him. They were told he could come here for admission. Suicidal Patient came in through the ED with EMS. [facility]. Patient says he is having, racing thoughts . He says that he can't, turn off his mind.The patient admits the he has been having SI. Patient says that he would take pills or stab himself in the stomach with a knife. Patient admits that he has been having feelings of wanting to hurt his daughter.He says that he does not have a plan for that. Patient denies AH.Patient says that the covers on the bed move but I'm not doing it . 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 Current Stressors History of Present Illness HPI History provided by: Patient, Relative Presenting symptoms: Anxiety, Depression, Racting thoughts, Agitation, Suicidal statement(s) Patient accompanied by: Child Degree of incapacity (severity): Severe Duration: on going Timing: Intermittent Progression: Worsening Chronicity: Recurrent Context: Alcohol use, Medication(s), Recent medication change Time since last psychoactive medication taken: 12/10/2024 Relieved by: Antidepressants Associated symptoms: Anxiety, Insomnia, Irritability Risk factors: Substance abuse Stephen 74 y/o CM presents with EMS and daughter for worsening anxiety, depression suicidal ideation and plan to stab himself with a knife. Stephen lives in [place] with his cousin, recently was admitted to [facility] for COPD execerbation 12/01 and started on prednisone. He was seen at [facility] on Friday12/05/24 and instructed to stop prednisone. Apparently, He came to stay with daughter here in [place] as as his cousine was traveling and family felt given hx and acute anxiety he should not be in [place] alone. Clinically, pt presents anxious, restless and reports on going bad thoughts and wanting to end his life. He reports not sleeping for 5 days, diffculting eating, has no energy, motivation. Daughter reports while he's been with her the last week he has been worsening and to go anywhere he says its like I don't want to move. Daughter and pt report this AMwas his worse and he was irritable and threatening towards daughter pt himself report HI but no intent and was upset for having these thoughts. Since admission to hospital pt has stopped drinking andsmoking has been 2 week no alcohol. Reports 3-4 drinks daily for 30 years He continues to voice concern with no sleep, fear her would hurt self if went home. Hx of depression & anxiety since early with 3x inpatient admission in [place]. Last in 2007 for approx 5 days for suicidal ideation. Denies any SA. Pt , has adult daughter prescribed medication Paxil 40mg and trazodone 100mg night by PCP. Plan to admit to [facility] adjust medication and safety. Care Coordination History Past Collateral & Treatment History Collateral & Treatment History Collateral/Treatment History: PROVIDER/COLLATERAL CONTACT INFO CONTACT MADE # OF CONTACT ATTEMPTS TX LOCATION DATE OF LAST TX TYPE OF TX REASON/DX LENGTH OF STAY TX HELPFUL TX DRUG OR ALCOHOL REHAB TX RECORDS REQUESTED COMMENTS PCP Kati Rubio M.D. [facility] [address] [place] [address] Tel. [phone] [WW1.1] [WW1.1] Attribution WW1.1 Tatum Prasad RN 12/10/24 11:30 Past Suicide / Self Harm History Suicide/Self-Harm History Self Harm History Suicide History Substance Use Family History No family history on file. Social History Social History Substance and Sexual Activity Sexual Activity Not on file Social Determinants of Health Food Risk: Not on file Transportation: Not on file Housing Instability: Not on file Food Access & Nutrition: Not on file Access to Healthcare: Not on file Financial Risk: Not on file Social Isolation: Not on file [place] [facility] Literacy: Not on file Relationships and Living Situation Relationship(s) and Social Support(s) Parental Status: Has children over 18 years of age Social Supports: Child (Children), Other family member (Comment) Residence/Homeless What is your current living situation?: [facility] Current Residence: Private residence Was the patient homeless at any time within the past 6 months?: No Education / Employment Education What is the highest level of school you have completed?: 9th grade Knowledge of community resources?: No Employment Employment status: Retired History History Personal/Family Service Information: Service-Related Health Information: Legal History Legal history History of legal problems: No Childhood Abuse/Neglect Abuse Questionnaire Abuse Screening: Adult Screening Safe in Home: Yes Medical/Surgical History No past medical history on file. No past surgical history on file. Review of Systems Psychiatric Psychiatric: Depression, Anxiety ROS Allergic/Immunologic: No pertinent findings Cardiovascular: No pertinent findings Constitutional Symptoms: No pertinent findings Endocrine: No pertinent findings Ears, Nose, Mouth, and Throat: No pertinent findings Eyes: No pertinent findings Gastrointestinal: No pertinent findings Genitourinary: No pertinent findings Hematological/Lymphatic: No pertinent findings Musculoskeletal: No pertinent findings Neurological: No pertinent findings Respiratory: No pertinent findings Skin: No pertinent findings Physical Dexterity Muscle Strength and Tone: Strength and tone within normal limits Gait and Station: Gait steady and station within normal limits Vital Signs Visit Vitals BP 123/86 (BP Location: Right arm, Patient Position: Sitting) Pulse 98 Temp 36.4 ??C (97.5 ??F) (Oral) Resp 18 Ht 1.702 m (67 ) Wt 70.3 kg (155 lb) SpO2 95% BMI 24.28 kg/m?? BSA 1.81 m?? Psychiatric Specialty Examination Mental Status Exam Constitutional Exam: Appears stated age Build/Stature: WNL Posture: WNL Hygiene/Grooming: Fair Hygiene Clothing: Appropriately dressed Speech: Clear Psychomotor Activity: WNL Mood: Anxious, Depressed Affect: Full Perceptual Disturbances: None Delusions: None Thought Process: Linear and logical Thought Content: Depressive Suicidal ideation: Vague about dying Homicidal Ideation: Admits homicidal thoughts with specific target (reports was feeling hostile towards daughter but not intent, daughter with patient) Remote Memory: Intact Recent Memory: Intact Insight: Fair Judgment: Fair Orientation: Appropriately oriented x3 Attitude Toward Examiner: Cooperative Associations: No loosening evident Fund of Knowledge: Fair Concentration: Fair Attention Span: Fair Cognition: Intact Current Coping Skills: Good Language: Fluent in Turkish Basic Living Needs Is the patient unable to meet their basic living needs upon admission to the Behavioral Health ED?:NO, patient is meeting their basic living needs Hawkins Suicide Severity Rating Scale (Screener/Recent Self-Report) 1. Wish to be (Past 1 Month): Yes 2. Non-Specific Active Suicidal Thoughts (Past 1 Month): Yes 3. Active Suicidal Ideation with any Methods (Not Plan) Without Intent to Act (Past 1 Month): Yes 4. Active Suicidal Ideation with Some Intent to Act, Without Specific Plan (Past 1 Month): Yes 5. Active Suicidal Ideation with Specific Plan and Intent (Past 1 Month): (pt shares thoughts to stab self but no intent and wants the help) 6. Suicidal Behavior (Lifetime): No Calculated C-SSRS Risk Score (Lifetime/Recent): High Risk Risk Assessment - Risk Factors Diagnoses & Symptoms of Concern:: Depression, Hopelessness or despair Access to Lethal Means:: (denies access) Risk Assessment - Protective Factors Protective Factors:: Access to clinical interventions, Cultural, spiritual, or moral attitudes against suicide, Engaged in work or school, Expression of hope for the future, Identification of reasonsfor living, In supervised/inpatient setting, Other protective factors, Sense of responsibility to family, pets, or others, Supportive social network of family Suicide Risk Level:: Moderate Clinical Formulation:: [facility]. Presents with worsening anxiety and depression with suicidal ideation and plan to stab self with knief. Pt has Fair insight and judgment and multiple protective factors pt acute anxiety risk for safety and assesed to be a moderate risk to self. Firearms Was threat made to harm self/others with a firearm?: No Does the patient own or have access to firearms?: No Diagnosis 1. Severe episode of recurrent major depressive disorder, without psychotic features (CMS/HCC) 2. Anxiety Labs Results Labs Reviewed CBC AND DIFFERENTIAL Narrative: The following orders were created for panel order CBC and differential. Procedure Abnormality Status --------- ------ CBC auto differential[[id number]] Please view results for these tests on the individual orders. COMPREHENSIVE METABOLIC PANEL THYROID STIMULATING HORMONE URINALYSIS WITH MICROSCOPIC Narrative: The following orders were created for panel order Urinalysis with microscopic. Procedure Abnormality Status --------- ------ Urinalysis with microsc...[[id number]] Connor urine culture tube[[id number]] Please view results for these tests on the individual orders. DRUG ABUSE SCREEN, URINE CBC WITH AUTO DIFFERENTIAL URINALYSIS WITH MICROSCOPIC Assessment / Discharge Planning Plan and Assessment Plan/Assessment #1: Stephen 74 y/o male presentes with c/o worsening depression, anxiety and suicidal ideations. Plan to admit to [facility] for safety Plan/Assessment #2: Order routine lab work Plan/Assessment #3: Continue home medication, add seroquel 25mg p.o qhs for adjunctive treatment ofdepression/anxiety and insomnia. Plan/Assessment Additional Information: reevaluated in the morning Treatment Plan Progress Towards Discharge MDM Number of Diagnosis or Management Options: [] Minimal [] Limited [x] Multiple [] Extensive Amount/Complexity of Data Reviewed: [] Minimal [] Limited [x] Multiple [] Extensive More than 50% of this Evaluation in: [x] Coordination of Care [] Treatment Planning [] Team Meeting [] Discharge Planning [] Other: [] Counseling [] Coping Skills [] Management Options [] Re: [] Medication Review [] Pt challenges need for medication [] Pt fearful of side effects [] Too early to evaluate effect [] No changes [] No side effects Billing Code: [id number] Associated attestation - Sherly Castillo MD - 12/10/2024 1:27 PM EST I performed a history and physical examination and discussed the patient management with preceding Advanced Practice Provider. I agree with the history and physical assessment and plan of care, with the following exceptions: None I was present for the following cross procedures: None Sherly Castillo MD documented in this encounter Plan of Treatment Not on file documented as of this encounter Procedures Procedure Name Priority Date/Time Associated Diagnosis Comments URINALYSIS WITH MICROSCOPIC STAT 12/10/2024 3:02 PM EST CONNOR URINE CULTURE TUBE STAT 12/10/2024 3:02 PM EST URINALYSIS WITH MICROSCOPIC STAT 12/10/2024 3:02 PM EST DRUG ABUSE SCREEN, URINE STAT 12/10/2024 3:02 PM EST CBC WITH AUTO DIFFERENTIAL STAT 12/10/2024 2:15 PM EST CBC AND DIFFERENTIAL STAT 12/10/2024 2:15 PM EST THYROID STIMULATING HORMONE STAT 12/10/2024 2:15 PM EST COMPREHENSIVE METABOLIC PANEL STAT 12/10/2024 2:15 PM EST documented in this encounter Results * Connor urine culture tube (12/10/2024 3:02 PM EST) Pathologist [facility] Extra Tube Hold for add-ons. 12/10/2024 5:02 PM EST [facility] Comment:Auto resulted. Urine Urine specimen obtained by clean catch procedure / Unknown Non-blood Collection / Unknown 12/10/2024 3:02 PM EST 12/10/2024 3:10 PM EST Sherly Castillo MD LAB URINE ORDERABLES Final Result [facility] [address] [place] [id number], [place] [phone] * (ABNORMAL) Urinalysis with microscopic (12/10/2024 3:02 PM EST) Pathologist [facility] Color, Urine Yellow Yellow LAB URINALYSIS - AUTOMATED METHOD 12/10/2024 4:34 PM EST [facility] Clarity, Urine Clear Clear LAB URINALYSIS - AUTOMATED METHOD 12/10/2024 4:34 PM EST [facility] Specific Rebuck Urine 1.026 1.003 - 1.030 LAB URINALYSIS - AUTOMATED METHOD 12/10/2024 4:34 PM EST [facility] pH, Urine 5.5 5.0 - 7.5 pH LAB URINALYSIS - AUTOMATED METHOD 12/10/2024 4:34 PM EST [facility] Leukocytes, Urine Negative Negative WBCs/mcL LAB URINALYSIS - AUTOMATED METHOD 12/10/2024 4:34 PM [facility] Nitrite, Urine Negative Negative LAB URINALYSIS - AUTOMATED METHOD 12/10/2024 4:34 PM [facility] Protein, Urine Trace(A) Negative mg/dL LAB URINALYSIS - AUTOMATED METHOD 12/10/2024 4:34 PM [facility] Glucose, Urine Negative Negative mg/dL LAB URINALYSIS - AUTOMATED METHOD 12/10/2024 4:34 PM [facility] Ketones, Urine 1+(A) Negative mg/dL LAB URINALYSIS - AUTOMATED METHOD 12/10/2024 4:34 PM [facility] Urobilinogen, Urine Normal Normal mg/dL LAB URINALYSIS - AUTOMATED METHOD 12/10/2024 4:34 PM [facility] Blood, Urine Negative Negative LAB URINALYSIS - AUTOMATED METHOD 12/10/2024 4:34 PM [facility] Bilirubin, Urine Negative Negative mg/dL LAB URINALYSIS - AUTOMATED METHOD 12/10/2024 4:34 PM [facility] RBC, Urine 0 0 - 3 /HPF LAB URINALYSIS - AUTOMATED METHOD 12/10/2024 4:34 PM [facility] WBC, Urine <1 0 - 6 /HPF LAB URINALYSIS - AUTOMATED METHOD 12/10/2024 4:34 PM [facility] Bacteria, Urine 1+(A) None /HPF LAB URINALYSIS - AUTOMATED METHOD 12/10/2024 4:34 PM [facility] Mucus, Urine 4+ No ref range /HPF LAB URINALYSIS - AUTOMATED METHOD 12/10/2024 4:34 PM [facility] Urine Urine specimen obtained by clean catch procedure / Unknown Non-blood Collection / Unknown 12/10/2024 3:02 PM EST 12/10/2024 3:09 PM EST us Sherly Castillo MD LAB URINE ORDERABLES Final Result [facility] [address] [place] [address], [place] [phone] * Drug abuse screen, urine (12/10/2024 3:02 PM EST) Amphetamine Screen, Ur Negative Negative LAB CHEMISTRY METHOD 12/10/2024 3:37 PM EST [facility] Barbiturate Screen, Ur Negative Negative LAB CHEMISTRY METHOD 12/10/2024 3:37 PM EST [facility] Benzodiazepine Screen, Ur Negative Negative LAB CHEMISTRY METHOD 12/10/2024 3:37 PM EST [facility] Opiate Screen, Ur Negative Negative LAB CHEMISTRY METHOD 12/10/2024 3:37 PM EST [facility] Comment:NOTE: Oxycodone is n ot sufficiently detected by this screening assay. A more sensitive assay is available upon request. Cocaine Screen, Ur Negative Negative LAB CHEMISTRY METHOD 12/10/2024 3:37 PM EST [facility] Cannabinoid (THC) Screen, Ur Negative Negative LAB CHEMISTRY METHOD 12/10/2024 3:37 PM EST [facility] PCP Scrn, Ur Negative Negative LAB CHEMISTRY METHOD 12/10/2024 3:37 PM EST [facility] Urine Urine specimen obtained by clean catch procedure / Unknown Non-blood Collection / Unknown 12/10/2024 3:02 PM EST 12/10/2024 3:10 PM EST Narrative [facility] - 12/10/2024 3:37 PM EST This is a screening test only. Confirmatory testing is available if requested within 48 hours of report. This assay does not detect synthetic opioids. Drugs Analyzed Initial Test Cutoff Concentrations Amphetamines ? 1000 ng/mL Barbiturates ?200 ng/mL Benzodiazepines ?? 200 ng/mL Cannabinoids ? 50 ng/mL Cocaine ? 300 ng/mL Opiates ? 300 ng/mL Phencyclidine ?25 ng/mL Sherly Castillo MD LAB URINE ORDERABLES Final Result [facility] [address] [place] [address], * (ABNORMAL) CBC auto differential (12/10/2024 2:15 PM EST) WBC 14.6(H) 4.1 - 11.0 K/mcL LAB HEMETOLOGY METHOD 12/10/2024 2:31 PM EST [facility] RBC 5.82 4.60 - 6.10 M/mcL LAB HEMETOLOGY METHOD 12/10/2024 2:31 PM EST [facility] Hemoglobin 17.6 13.5 - 18.0 g/dL LAB HEMETOLOGY METHOD 12/10/2024 2:31 PM EST [facility] Hematocrit 50.7 41.0 - 53.0 % LAB HEMETOLOGY METHOD 12/10/2024 2:31 PM EST [facility] MCV 87.1 80.0 - 95.0 FL LAB HEMETOLOGY METHOD 12/10/2024 2:31 PM EST [facility] MCH 30.2 27.0 - 32.0 pcg LAB HEMETOLOGY METHOD 12/10/2024 2:31 PM EST [facility] MCHC 34.7 32.0 - 36.0 g/dL LAB HEMETOLOGY METHOD 12/10/2024 2:31 PM EST [facility] RDW 11.9 10.5 - 14.5 % LAB HEMETOLOGY METHOD 12/10/2024 2:31 PM [facility] Platelets 339 150 - 450 K/mcL LAB HEMETOLOGY METHOD 12/10/2024 2:31 PM [facility] MPV 10.3 9.4 - 12.4 FL LAB HEMETOLOGY METHOD 12/10/2024 2:31 PM [facility] Neutrophils Relative 66.5 35.0 - 75.0 % LAB HEMETOLOGY METHOD 12/10/2024 2:31 PM [facility] Lymphocytes Relative 23.6 16.0 - 52.0 % LAB HEMETOLOGY METHOD 12/10/2024 2:31 PM [facility] Monocytes Relative 8.2 0.0 - 12.0 % LAB HEMETOLOGY METHOD 12/10/2024 2:31 PM [facility] Eosinophils Relative 0.6 0.0 - 5.0 % LAB HEMETOLOGY METHOD 12/10/2024 2:31 PM [facility] Basophils Relative 0.3 0.0 - 4.0 % LAB HEMETOLOGY METHOD 12/10/2024 2:31 PM [facility] Immature Granulocytes Relative 0.8 0.0 - 1.0 % LAB HEMETOLOGY METHOD 12/10/2024 2:31 PM [facility] Neutrophils Absolute 9.68(H) 1.80 - 7.70 K/mcL LAB HEMETOLOGY METHOD 12/10/2024 2:31 PM [facility] Lymphocytes Absolute 3.44 1.20 - 4.80 K/mcL LAB HEMETOLOGY METHOD 12/10/2024 2:31 PM [facility] Monocytes Absolute 1.19(H) 0.00 - 1.00 K/mcL LAB HEMETOLOGY METHOD 12/10/2024 2:31 PM [facility] Eosinophils Absolute 0.09 0.00 - 0.50 K/mcL LAB HEMETOLOGY METHOD 12/10/2024 2:31 PM EST [facility] Basophils Absolute 0.05 0.00 - 0.20 K/mcL LAB HEMETOLOGY METHOD 12/10/2024 2:31 PM EST [facility] Immature Granulocytes Absolute 0.11(H) 0.00 - 0.10 K/mcL LAB HEMETOLOGY METHOD 12/10/2024 2:31 PM EST [facility] Blood Venous blood specimen / Unknown Venipuncture / Unknown 12/10/2024 2:15 PM EST 12/10/2024 2:25 PM EST Sherly Castillo MD LAB BLOOD ORDERABLES Final Result Performing Organization Address City/[facility]/ZIP Co de Phone Number [facility] [address] [place] [address], [place] [phone] * Thyroid stimulating hormone (12/10/2024 2:15 PM EST) Pathologist [facility] TSH 1.90 0.55 - 4.78 mcIU/mL LAB CHEMISTRY METHOD 12/10/2024 3:39 PM EST [facility] Blood Venous blood specimen / Unknown Venipuncture / Unknown 12/10/2024 2:15 PM EST 12/10/2024 2:25 PM EST Sherly Castillo MD LAB BLOOD ORDERABLES Final Result [facility] [address] [place] [address], [place] [phone] * (ABNORMAL) Comprehensive metabolic panel (12/10/2024 2:15 PM EST) Sodium 135(L) 136 - 145 mmol/L LAB CHEMISTRY METHOD 12/10/2024 3:[address] [facility] Potassium 4.3 3.5 - 5.1 mmol/L LAB CHEMISTRY METHOD 12/10/2024 3:21 PM [facility] Chloride 100 98 - 107 mmol/L LAB CHEMISTRY METHOD 12/10/2024 3:21 PM [facility] CO2 25 20 - 31 mmol/L LAB CHEMISTRY METHOD 12/10/2024 3:21 PM [facility] Anion Gap 10 5 - 15 LAB CHEMISTRY METHOD 12/10/2024 3:21 PM [facility] Comment:The reference range has been updated per domain architect recommendation. Glucose 111(H) 70 - 99 mg/dL LAB CHEMISTRY METHOD 12/10/2024 3:21 PM [facility] BUN 16 9 - 23 mg/dL LAB CHEMISTRY METHOD 12/10/2024 3:21 PM [facility] Creatinine 0.99 0.70 - 1.30 mg/dL LAB CHEMISTRY METHOD 12/10/2024 3:21 PM [facility] eGFR 80 >=60 mL/min/1. 73m2 LAB CHEMISTRY METHOD 12/10/2024 3:21 PM [facility] Comment:Calculation based on the??Chronic Kidney Disease Epidemiology Collaboration (CKD-EPI) equation refit??without adjustment for race. BUN/Creatinine Ratio 16.2 10.0 - 20.0 LAB CHEMISTRY METHOD 12/10/2024 3:21 PM [facility] Calcium 9.6 8.3 - 10.6 mg/dL LAB CHEMISTRY METHOD 12/10/2024 3:21 PM [facility] AST (SGOT) 23 13 - 40 unit/L LAB CHEMISTRY METHOD 12/10/2024 3:21 PM [facility] ALT (SGPT) 35 9 - 40 unit/L LAB CHEMISTRY METHOD 12/10/2024 3:21 PM [facility] Alkaline Phosphatase 92 50 - 136 unit/L LAB CHEMISTRY METHOD 12/10/2024 3:21 PM EST [facility] Total Protein 6.3 5.7 - 8.2 g/dL LAB CHEMISTRY METHOD 12/10/2024 3:21 PM EST [facility] Globulin, Total 2.6(L) 2.7 - 4.3 g/dL LAB CHEMISTRY METHOD 12/10/2024 3:21 PM EST [facility] A/G Ratio 1.4 LAB CHEMISTRY METHOD 12/10/2024 3:21 PM EST [facility] Total Bilirubin 0.8 0.0 - 1.0 mg/dL LAB CHEMISTRY METHOD 12/10/2024 3:21 PM EST [facility] Albumin 3.7 3.2 - 4.5 g/dL LAB CHEMISTRY METHOD 12/10/2024 3:21 PM EST [facility] Blood Venous blood specimen / Unknown Venipuncture / Unknown 12/10/2024 2:15 PM EST 12/10/2024 2:25 PM EST us Sherly Castillo MD LAB BLOOD ORDERABLES Final Result [facility] [address] [place] [address], [place] [phone] documented in this encounter Visit Diagnoses Diagnosis Anxiety- Primary Anxiety state, unspecified MDD (major depressive disorder), recurrent episode, mild (CMS/HCC) documented in this encounter Administered Medications Inactive Administered Medications - up to 3 most recent administrations Medication Order MAR Action Action Date Dose Rate Site atorvastatin (LIPITOR) tablet 10 mg 10 mg, oral, Nightly, First dose on Fri12/10/24 at 2100 Given 12/10/2024 8:08 PM EST 10 mg finasteride (PROSCAR) tablet 5 mg 5 mg, oral, Daily, First dose on Fri12/10/24 at 1500, HAZARDOUS Drug Precautions - Low Risk (Category A/NIOSH Group 3) Reproductive Risk Only: - Do NOT split, crush, or open dosage units - Single pair of ASTM standard [id number] certified chemotherapy gloves - Eye protection (goggles or face shield) required only with a potential for facial contact (i.e. concern for spitting or vomiting of the dose during or after administration) Given 12/11/2024 8:19 AM EST 5 mg Given 12/10/2024 2:47 PM EST 5 mg folic acid (FOLVITE) tablet 1 mg 1 mg, oral, Daily, First dose on Fri12/10/24 at 1500 Given 12/11/2024 8:19 AM EST 1 mg Given 12/10/2024 2:47 PM EST 1 mg levothyroxine (SYNTHROID, LEVOTHROID) tablet 125 mcg 125 mcg, oral, Daily, First dose on Fri12/11/24 at 0600, ORAL ROUTE: take on an empty stomach and separate from other medications. ENTERAL TUBE ROUTE: If newly initiated enteral nutrition duration is over 5 days, hold enteral nutrition 1 hour before and after drug administration, per ASPEN guidelines. Given 12/11/2024 6:13 AM EST 125 mcg PARoxetine (PAXIL) tablet 40 mg 40 mg, oral, Daily, First dose on Fri12/10/24 at 1500, HAZARDOUS Drug Precautions - Low Risk (Category A/NIOSH Group 3) Reproductive Risk Only: - Do NOT split, crush, or open dosage units - Single pair of ASTM standard [id number] certified chemotherapy gloves - Eye protection (goggles or face shield) required only with a potential for facial contact (i.e. concern for spitting or vomiting of the dose during or after administration) Given 12/11/2024 8:19 AM EST 40 mg Given 12/10/2024 2:47 PM EST 40 mg pyridoxine (B-6) tablet 50 mg 50 mg, oral, Daily, First dose on Fri12/10/24 at 1500 Given 12/11/2024 8:19 AM EST 50 mg Given 12/10/2024 2:47 PM EST 50 mg QUEtiapine (SEROquel) tablet 25 mg 25 mg, oral, Nightly, First dose on Fri12/10/24 at 2100 Given 12/10/2024 8:08 PM EST 25 mg tamsulosin (FLOMAX) 24 hr capsule 0.4 mg 0.4 mg, oral, Nightly, First dose on Fri12/10/24 at 2100, For oral administration: capsules should be swallowed whole (Do not crush, chew, or open). For tube administration: open capsule and administer with water (granules should NOT be crushed). Given 12/10/2024 8:08 PM EST 0.4 mg thiamine (VITAMIN B-1) tablet 100 mg 100 mg, oral, 2 times daily, First dose on Fri12/10/24 at 2100 Given 12/11/2024 8:19 AM EST 100 mg Given 12/10/2024 8:08 PM EST 100 mg traZODone (DESYREL) tablet 100 mg 100 mg, oral, Nightly, First dose on Fri12/10/24 at 2100 Given 12/10/2024 8:08 PM EST 100 mg documented in this encounter Discontinued Medications Medication Sig Discontinue Reason Start Date End Da te predniSONE (DELTASONE) 20 mg tablet Take 1 tablet (20 mg total) by mouth 1 (one) time each day. Start 12/03 take 3 tabs daily then 2 tabs daily for 3 days then 1 tab for 3 days Prescriber Discontinued 12/10/2024 documented as of this encounter Historical Medications * This list may reflect changes made after this encounter. tamsulosin (FLOMAX) 0.4 mg 24 hr capsule Take 1 capsule (0.4 mg total) by mouth at bedtime. Capsules should be taken 30 minutes following the same meal each day. finasteride (PROSCAR) 5 mg tablet Take 1 tablet (5 mg total) by mouth 1 (one) time each day. Do not crush, chew, or split. simvastatin (ZOCOR) 20 mg tablet Take 1 tablet (20 mg total) by mouth 1 (one) time each day in the morning. ipratropium-albu teroL (COMBIVENT RESPIMAT) 20-100 mcg/actuation inhaler Inhale 2 puffs by mouth 2 (two) times a day. PARoxetine (PAXIL) 40 mg tablet Take 1 tablet (40 mg total) by mouth 1 (one) time each day. thiamine 100 mg tablet Take 1 tablet (100 mg total) by mouth 2 (two) times a day. pyridoxine (B-6) 50 mg tablet Take 1 tablet (50 mg total) by mouth 1 (one) time each day. folic acid (FOLVITE) 1 mg tablet Take 1 tablet (1 mg total) by mouth 1 (one) time each day. nicotine (NICODERM CQ) 7 mg/[address] 1 patch on the skin 1 (one) time per week. traZODone (DESYREL) 50 mg tablet Take 2 tablets (100 mg total) by mouth at bedtime. levothyroxine (SYNTHROID, LEVOTHROID) 125 mcg tablet Take 1 tablet (125 mcg total) by mouth 1 (one) time each day. fluticasone propion-salmeter oL (ADVAIR DISKUS) 100-50 mcg/dose diskus inhaler Inhale 1 puff by mouth 2 (two) times a day. Rinse mouth with water after use to reduce aftertaste and incidence of candidiasis. Do not swallow. cloNIDine (CATAPRES) 0.1 mg tablet Take 1 tablet (0.1 mg total) by mouth 2 (two) times a day if needed for high blood pressure. predniSONE (DELTASONE) 20 mg tablet Take 1 tablet (20 mg total) by mouth 1 (one) time each day. Start 12/03 take 3 tabs daily then 2 tabs daily for 3 days then 1 tab for 3 days added in this encounter Active and Recently Administered Medications Times are shown in EST. Scheduled Medication Order 12/09/2024 12/10/2024 12/11/2024 atorvastatin (LIPITOR) tablet 10 mg 10 mg, oral, Nightly, First dose on Fri12/10/24 at 2100 2008 (Given - Provider: Nhi Galarza RN) finasteride (PROSCAR) tablet 5 mg 5 mg, oral, Daily, First dose on Fri12/10/24 at 1500, HAZARDOUS Drug Precautions - Low Risk (Category A/NIOSH Group 3) Reproductive Risk Only: - Do NOT split, crush, or open dosage units - Single pair of ASTM standard [id number] certified chemotherapy gloves - Eye protection (goggles or face shield) required only with a potential for facial contact (i.e. concern for spitting or vomiting of the dose during or after administration) 1447 (Given - Provider: Kristin Faulkner RN) 0819 (Given - Provider: Nhi Galarza RN) folic acid (FOLVITE) tablet 1 mg 1 mg, oral, Daily, First dose on Fri12/10/24 at 1500 1447 (Given - Provider: Kristin Faulkner RN) 08 (Given - Provider: Nhi Galarza RN) levothyroxine (SYNTHROID, LEVOTHROID) tablet 125 mcg 125 mcg, oral, Daily, First dose on Fri12/11/24 at 0600, ORAL ROUTE: take on an empty stomach and separate from other medications. ENTERAL TUBE ROUTE: If newly initiated enteral nutrition duration is over 5 days, hold enteral nutrition 1 hour before and after drug administration, per ASPEN guidelines. 0613 (Given - Provid er: Kim Banuelos RN) nicotine (NICODERM CQ) 7 mg/24 hr 1 patch 1 patch, transdermal, Administer over 24 Hours, Weekly, First dose on Fri12/10/24 at 1400 1449 (Not Given - Provider: Kristin Faulkner RN - Reason: Patient/Resident/Agent refused - education provided ) PARoxetine (PAXIL) tablet 40 mg 40 mg, oral, Daily, First dose on Fri12/10/24 at 1500, HAZARDOUS Drug Precautions - Low Risk (Category A/NIOSH Group 3) Reproductive Risk Only: - Do NOT split, crush, or open dosage units - Single pair of ASTM standard [id number] certified chemotherapy gloves - Eye protection (goggles or face shield) required only with a potential for facial contact (i.e. concern for spitting or vomiting of the dose during or after administration) 1447 (Given - Provider: Kristin Faulkner RN) 08 (Given - Provider: Nhi Galarza RN) pyridoxine (B-6) tablet 50 mg 50 mg, oral, Daily, First dose on Fri12/10/24 at 1500 1447 (Given - Provider: Kristin Faulkner RN) 08 (Given - Provider: Nhi Galarza RN) QUEtiapine (SEROquel) tablet 25 mg 25 mg, oral, Nightly, First dose on Fri12/10/24 at 2100 2007 (Given - Provider: Nhi Galarza RN) tamsulosin (FLOMAX) 24 hr capsule 0.4 mg 0.4 mg, oral, Nightly, First dose on Fri12/10/24 at 2100, For oral administration: capsules should be swallowed whole (Do not crush, chew, or open). For tube administration: open capsule and administer with water (granules should NOT be crushed). 2007 (Given - Provider: Nhi Galarza RN) thiamine (VITAMIN B-1) tablet 100 mg 100 mg, oral, 2 times daily, First dose on Fri12/10/24 at 2100 2007 (Given - Provider: Nhi Galarza RN) 08 (Given - Provider: Nhi Galarza RN) traZODone (DESYREL) tablet 100 mg 100 mg, oral, Nightly, First dose on Fri12/10/24 at 2100 2007 (Given - Provider: Nhi Galarza RN) PRN Medication Order 12/09/2024 12/10/2024 12/11/2024 cloNIDine (CATAPRES) tablet 0.1 mg 0.1 mg, oral, 2 times daily PRN, high blood pressure, Starting on Fri12/10/24 at 1310 documented in this encounter Orders Medications Ordered That Hilario ht Not Have Been Administered Count Last Ordered Date First Ordered Date cloNIDine (CATAPRES) tablet 0.1 mg 1 2024 nicotine (NICODERM CQ) 7 mg/24 hr 1 patch 1 12/10/2024 documented in this encounter Care Teams Chalk Tester Relationship Specialty Start Date End Date Physician, Pcp Unknown PCP - General 12/10/24 documented as of this encounter
--- NOTE | 2024-12-29 15:21 | A.OFFVIS_ITS ---
Vital Signs 12/29/24 15:23 Height 5 ft 7 in Weight 147 lb BMI 23.0 BP 122/67 Blood Pressure Location Rt brachial Position Sitting Pulse 110 H Pulse Source Doppler Pulse Oximetry (%) 96 Oxygen Delivery Method Room Air Intake Visit Reasons: copd Allergies No Known Allergies Allergy (Verified 12/29/24 15:25) HPI HPI copd: Details: 74-year-old gentleman, recent 40+ pack-year smoker, with recent hospitalization for what appears to be COPD exacerbation referred for pulmonary evaluation. Patient states that he does not have prior pulmonary function testing. He currently using Wixela and Combivent with reasonable control of his symptoms. He does have family history of lung cancer in his mother and his sister. Patient has been employed with no exposure to industrial dusts. Patient does complain of unintended weight loss of approximately 10 lb over last month. [facility] Social History (Updated 12/29/24 @ 15:26 by Anitha Oscar [facility], [facility]) Patient Tobacco Use Status: Former Tobacco user Tobacco use type: Cigarette Years Smoked: started age 15, 2PPD, quit November 2024 Review of Systems Const Denies daytime sleepiness, Denies excessive sweating, Denies fatigue, Denies fever(s), Denies lethargy, Denies malaise, Denies night sweats, Denies snoring a nd Reports weight loss Eyes Denies blurry vision and Denies itchy eyes ENT Denies nasal congestion, Denies post nasal drip, Denies sinus pain, Denies sinus pressure and Denies other ( Thrush) Card Denies chest pain, Denies pedal edema, Denies dyspnea, Denies orthopnea and Denies paroxysmal nocturnal dyspnea Resp Denies cough, Denies hemoptysis, Denies excessive phlegm production, Denies dyspnea, Denies snoring and Denies wheezing GI Denies abdominal pain and Denies heartburn Musc Denies myalgias, Denies arthralgias and Denies joint swelling Skin/Breast Denies rash Neuro Denies memory loss and Denies seizure-like activity Psych Denies abnormal sleep pattern, Denies anxiety and Denies memory loss Endo Denies excessive sweating, Denies fatigue and Denies heat intolerance Eddie/Lymph Denies easy bruising Aller/Immun Denies itchy eyes, Denies seasonal rhinorrhea and Denies wheezing Physical Exam Vital Signs: Last Vital Signs Pulse 110 H 12/29/24 15:23 BP 122/67 12/29/24 15:23 Pulse Ox 96 12/29/24 15:23 Oxygen Delivery Method Room Air 12/29/24 15:23 BMI result Body Mass Index 23.0 Const General: no acute distress and alert Nutritional Appearance: not obese Orientation/consciousness: Other orientation findings ( oriented) HEENT Head: Yes atraumatic Eyes General: appearance normal, both eyes and all related structures Sclerae: sclerae normal EOM: EOMs intact bilaterally Neck Neck: Yes supple Lymphatic: no lymphadenopathy noted Resp Effort & Inspection: normal respiratory effort and no use of accessory muscles Auscultation: clear to auscultation bilaterally Cardio Rate: regular rate Rhythm: regular rhythm Heart sounds: no gallops, no murmurs and no rubs Skin General skin exam: other ( warm) Extrem General: No clubbing, No cyanosis and No edema Assessment & Plan Assessment & Plan (1) Pulmonary emphysema: Code(s): J43.9 - Emphysema, unspecified Category: Medical Plan: Likely underlying COPD of unclear severity. Will obtain pulmonary function test. Continue Wixela and Combivent. (2) Personal history of nicotine dependence: Code(s): Z87.891 - Personal history of nicotine dependence Category: Medical Plan: Will obtain lung cancer screening CT chest. Orders: Orders CT lung screening Today Z87.891 - Personal history of nicotine dependence PFT pulmonary function test Today J43.9 - Emphysema, unspecified Coding Level of Care Code New Pt Level 4 (78261) Diagnoses Pulmonary emphysema J43.9 Personal history of nicotine dependence Z87.891
[2024-12-29 15:23] VITALS: BP 122/67; PULSE 110; O2SAT 96; BMI 23.0
== END 2024-12-29 15:54 | disposition home or self-care (01) ==
PROVIDERS: PCP Nurse Practitioner Family; Visit Provider Internal Medicine Pulmonary Disease
DX: J43.9 Emphysema, unspecified (principal); Z87.891 Personal history of nicotine dependence
CPT/HCPCS: 99204

== ENCOUNTER → 2024-12-29 15:14 | Outpatient (BNVA) | payer MEDICARE, SELFPAY | PROVIDERS: PCP Nurse Practitioner Family; Visit Provider Internal Medicine Pulmonary Disease | DX: J43.9 Emphysema, unspecified (principal); Z87.891 Personal history of nicotine dependence | CPT/HCPCS: 99202 ==

== ENCOUNTER 2025-02-22 12:42 | Outpatient (REF) | payer MEDICARE, SELFPAY ==
--- NOTE | ~2025-02-22 | CT_ITS ---
CLINICAL HISTORY: Z87.891 - Personal history of nicotine dependence CT lung cancer screening (LDCT) Comparison: None Technique: Axial CT images of the chest using low-dose technique. Referring provider counseled the patient on shared decision-making for LDCT screening. Additional counseling was provided on smoking cessation. Effective radiation dose total: DLP 46.6 mGycm, CTDIvol 1.2 mGy. Findings: Lung: Emphysema. No suspicious nodules. Coronary artery calcifications: None Limited upper abdomen: Unremarkable Other: Aortic atherosclerosis. No aneurysm. Impression: Category 1: Normal; continue annual screening Category 1: Normal; continue annual screening Category 2: Benign appearance or behavior, continue annual screening Category 3: Probably benign, [address] recommended Category 4A: Suspicious, [address] recommended; may consider PET/CT Category 4B: Suspicious, Additional diagnostics and/or tissue sampling recommended Category 4X: Suspicious, Additional diagnostics and/or tissue sampling recommended Category 0: Recalls (incomplete screen due to Incomplete coverage, Noise, Respiratory motion, Expiration, Obscured by acute abnormality) This document has been electronically signed by: Dana Ragland MD on 02/23/2025 18:46:50
--- NOTE | 2025-02-22 13:51 | PFT_ITS ---
Indication: Emphysema Spirometry [FEV1 to FVC 56%; FEV1 2.25 L; FVC 3.9 L. No significant response to bronchodilators noted.] Lung Volumes [Total lung capacity 111% predicted; residual volume 136% predicted] Diffusion Capacity DLCO 91% predicted Comparisons [none] Interpretation [There is a obstructive ventilatory defect consistent with mild COPD. No significant response to bronchodilators noted. Lung volumes with a trend of hyperinflation and significant air trapping due to the COPD. The theme capacity is within normal limits. Clinical correlation warranted.] MTDD
[2025-02-22 14:39] VITALS: PULSE 68; O2SAT 97
--- OUTSIDE RECORDS SUMMARY | 2025-02-22 15:30 | XMS_ITS | Clinical Summary ---
Author Organization [facility] Address [address] [place] [phone] Phone Care Team Providers Care Mold Release Worker Name Role Phone Physician, Pcp Unknown Primary Care Provider Neena vailable Allergies No known active allergies Medications cloNIDine (CATAPRES) 0.1 mg tablet Take 1 tablet (0.1 mg total) by mouth 2 (two) times a day if needed for high blood pressure. Active fluticasone propion-salmete roL (ADVAIR DISKUS) 100-50 mcg/dose diskus inhaler Inhale [...] mouth 1 (one) time each day. Active ipratropium-alb uteroL (COMBIVENT RESPIMAT) 20-100 mcg/actuation inhaler Inhale 2 [...] by mouth at bedtime. 30 each 1 Active Encounters Date Type Department Care Team Description 12/10/2024 11:10 AM EST - 12/11/2024 11:42 AM EST Emergency [facility] ([facility]) [address] [place] [phone] Anxiety (Primary Dx); MDD (major depressive disorder), recurrent episode, mild (CMS/HCC V24) Discharge Disposition: Home or Self Care from [...] Vaccines (1 of 2) 2000 RSV Immunization Adult Patients (1 - Risk 60-74 years 1-dose series) 2010 COVID-19 Vaccine (1 - 2023-2 5 season) 2024 Abdominal Aortic Aneurysm (AAA) Screen 12/10/2024 Cholesterol Screening (Lipid Panel) 12/10/2024 Depression Screening 12/10/2024 Falls Risk Assessment 12/10/2024 Hepatitis C Screening 12/10/2024 Medicare Annual Wellness Visit 12/10/2024 Social Influencers of Health Screening 12/10/2024 Influenza Vaccine (Season Ended) 2025 Colorectal Cancer Screening: FIT-DNA (Cologuard) 08/31/2027 08/31/2024, [...] age to complete this topic Meningococcal B Vaccine Aged Out No l onger eligible based on patient's age to complete [...] URINALYSIS - AUTOMATED METHOD 12/10/2024 4:[address] [facility] Clarity, Urine Clear Clear LAB URINALYSIS - AUTOMATED METHOD 12/10/2024 4:[address] [facility] Specific [place] Urine 1.026 1.003 - 1.030 LAB URINALYSIS - AUTOMATED METHOD 12/10/2024 4:[address] [facility] pH, Urine 5.5 5.0 - 7.5 pH LAB URINALYSIS - AUTOMATED METHOD 12/10/2024 4:[address] [facility] Leukocytes, Urine Negative Negative WBCs/mcL LAB URINALYSIS - AUTOMATED METHOD 12/10/2024 4:[address] [facility] Nitrite, Urine Negative Negative LAB URINALYSIS - AUTOMATED METHOD 12/10/2024 4:[address] [facility] Protein, Urine Trace(A) Negative mg/dL LAB URINALYSIS - AUTOMATED METHOD 12/10/2024 4:[address] [facility] Glucose, Urine Negative Negative mg/dL LAB URINALYSIS - AUTOMATED METHOD 12/10/2024 4:[address] [facility] Ketones, Urine 1+(A) Negative mg/dL LAB URINALYSIS - AUTOMATED METHOD 12/10/2024 4:34 PM EST [facility] Urobilinogen, Urine Normal Normal mg/dL LAB URINALYSIS - AUTOMATED METHOD 12/10/2024 4:34 PM EST [facility] Blood, Urine Negative Negative LAB URINALYSIS - AUTOMATED METHOD 12/10/2024 4:34 PM EST [facility] Bilirubin, Urine Negative Negative mg/dL LAB URINALYSIS - AUTOMATED METHOD 12/10/2024 4:[address] [facility] RBC, Urine 0 0 - 3 /HPF LAB URINALYSIS - AUTOMATED METHOD 12/10/2024 4:[address] [facility] WBC, Urine <1 0 - 6 /HPF LAB URINALYSIS - AUTOMATED METHOD 12/10/2024 4:[address] [facility] Bacteria, Urine 1+(A) None /HPF LAB URINALYSIS - AUTOMATED METHOD 12/10/2024 4:[address] [facility] Mucus, Urine 4+ No ref range /HPF LAB URINALYSIS - AUTOMATED METHOD 12/10/2024 4:[address] [facility] Urine Urine specimen obtained by clean catch procedure / Unknown Non-blood Collection / Unknown 12/10/2024 3:02 PM EST 12/10/2024 3:09 PM EST us Sherly Castillo MD LAB URINE ORDERABLES Final Result [facility] [address] [place] [id number], [place] [phone] * Connor urine culture tube (12/10/2024 3:02 PM EST) Extra Tube Hold for add-ons. 12/10/2024 5:02 PM EST [facility] Comment:Auto resulted. Urine Urine specimen obtained by clean catch procedure / Unknown Non-blood Collection / Unknown 12/10/2024 3:02 PM EST 12/10/2024 3:10 PM EST us Sherly Castillo MD LAB URINE ORDERABLES Final Result [facility] [address] [place] [id number], * Drug abuse screen, urine (12/10/2024 3:02 PM EST) Amphetamine Screen, Ur Negative Negative LAB CHEMISTRY METHOD 12/10/2024 3:37 PM EST [facility] Barbiturate Screen, Ur Negative Negative LAB CHEMISTRY METHOD 12/10/2024 3:37 PM EST [facility] Benzodiazepine Screen, Ur Negative Negative LAB CHEMISTRY METHOD 12/10/2024 3:37 PM EST [facility] Opiate Screen, Ur Negative Negative LAB CHEMISTRY METHOD 12/10/2024 3:37 PM EST [facility] Comment:NOTE: Oxycodone is n ot sufficiently detected by this screening assay. A more sensitive assay is available upon request. Cocaine Screen, Ur Negative Negative LAB CHEMISTRY METHOD 12/10/2024 3:37 PM EST [facility] Cannabinoid (THC) Screen, Ur Negative Negative LAB CHEMISTRY METHOD 12/10/2024 3:37 PM EST [facility] PCP Scrn, Ur Negative Negative LAB CHEMISTRY METHOD 12/10/2024 3:37 PM EST [facility] Urine Urine specimen obtained by clean catch procedure / Unknown Non-blood Collection / Unknown 12/10/2024 3:02 PM EST 12/10/2024 3:10 PM EST Narrative [facility] - 12/10/2024 3:37 PM EST This is a screening test only. Confirmatory testing is available if requested within 48 hours of report. This assay does not detect synthetic opioids. Drugs Analyzed Initial Test Cutoff Concentrations Amphetamines ? 1000 ng/mL Barbiturates ?200 ng/mL Benzodiazepines ?? 200 ng/mL Cannabinoids ? 50 ng/mL Cocaine ? 300 ng/mL Opiates ? 300 ng/mL Phencyclidine ?25 ng/mL us Sherly Castillo MD LAB URINE ORDERABLES Final Result [facility] [address] [place] [address], * (ABNORMAL) CBC auto differential (12/10/2024 2:15 PM EST) WBC 14.6(H) 4.1 - 11.0 K/mcL LAB HEMETOLOGY METHOD 12/10/2024 2:31 PM EST [facility] RBC 5.82 4.60 - 6.10 M/mcL LAB HEMETOLOGY METHOD 12/10/2024 2:31 PM EST [facility] Hemoglobin 17.6 13.5 - 18.0 g/dL LAB HEMETOLOGY METHOD 12/10/2024 2:31 PM EST [facility] Hematocrit 50.7 41.0 - 53.0 % LAB HEMETOLOGY METHOD 12/10/2024 2:31 PM EST [facility] MCV 87.1 80.0 - 95.0 FL LAB HEMETOLOGY METHOD 12/10/2024 2:31 PM EST [facility] MCH 30.2 27.0 - 32.0 pcg LAB HEMETOLOGY METHOD 12/10/2024 2:31 PM EST [facility] MCHC 34.7 32.0 - 36.0 g/dL LAB HEMETOLOGY METHOD 12/10/2024 2:[address] [facility] RDW 11.9 10.5 - 14.5 % LAB HEMETOLOGY METHOD 12/10/2024 2:[address] [facility] Platelets 339 150 - 450 K/mcL LAB HEMETOLOGY METHOD 12/10/2024 2:[address] [facility] MPV 10.3 9.4 - 12.4 FL LAB HEMETOLOGY METHOD 12/10/2024 2:[address] [facility] Neutrophils Relative 66.5 35.0 - 75.0 % LAB HEMETOLOGY METHOD 12/10/2024 2:[address] [facility] Lymphocytes Relative 23.6 16.0 - 52.0 % LAB HEMETOLOGY METHOD 12/10/2024 2:[address] [facility] Monocytes Relative 8.2 0.0 - 12.0 % LAB HEMETOLOGY METHOD 12/10/2024 2:[address] [facility] Eosinophils Relative 0.6 0.0 - 5.0 % LAB HEMETOLOGY METHOD 12/10/2024 2:[address] [facility] Basophils Relative 0.3 0.0 - 4.0 % LAB HEMETOLOGY METHOD 12/10/2024 2:[address] [facility] Immature Granulocytes Relative 0.8 0.0 - 1.0 % LAB HEMETOLOGY METHOD 12/10/2024 2:[address] [facility] Neutrophils Absolute 9.68(H) 1.80 - 7.70 K/mcL LAB HEMETOLOGY METHOD 12/10/2024 2:[address] [facility] Lymphocytes Absolute 3.44 1.20 - 4.80 K/mcL LAB HEMETOLOGY METHOD 12/10/2024 2:[address] [facility] Monocytes Absolute 1.19(H) 0.00 - 1.00 K/mcL LAB HEMETOLOGY METHOD 12/10/2024 2:31 PM EST [facility] Eosinophils Absolute 0.09 0.00 - 0.50 K/mcL LAB HEMETOLOGY METHOD 12/10/2024 2:31 PM EST [facility] Basophils Absolute 0.05 0.00 - 0.20 K/mcL LAB HEMETOLOGY METHOD 12/10/2024 2:31 PM EST [facility] Immature Granulocytes Absolute 0.11(H) 0.00 - 0.10 K/mcL LAB HEMETOLOGY METHOD 12/10/2024 2:31 PM EST [facility] Blood Venous blood specimen / Unknown Venipuncture / Unknown 12/10/2024 2:15 PM EST 12/10/2024 2:25 PM EST us Sherly Castillo MD LAB BLOOD ORDERABLES Final Result [facility] [address] [place] [id number], [place] [phone] * Thyroid stimulating hormone (12/10/2024 2:15 PM EST) TSH 1.90 0.55 - 4.78 mcIU/mL LAB CHEMISTRY METHOD 12/10/2024 3:39 PM EST [facility] Blood Venous blood specimen / Unknown Venipuncture / Unknown 12/10/2024 2:15 PM EST 12/10/2024 2:25 PM EST us Sherly Castillo MD LAB BLOOD ORDERABLES Final Result [facility] [address] [place] [address], [place] [phone] * (ABNORMAL) Comprehensive metabolic panel (12/10/2024 2:15 PM EST) Sodium 135(L) 136 - 145 mmol/L LAB CHEMISTRY METHOD 12/10/2024 3:[address] [facility] Potassium 4.3 3.5 - 5.1 mmol/L LAB CHEMISTRY METHOD 12/10/2024 3:[address] [facility] Chloride 100 98 - 107 mmol/L LAB CHEMISTRY METHOD 12/10/2024 3:[address] [facility] CO2 25 20 - 31 mmol/L LAB CHEMISTRY METHOD 12/10/2024 3:[address] [facility] Anion Gap 10 5 - 15 LAB CHEMISTRY METHOD 12/10/2024 3:[address] [facility] Comment:The reference range has been updated per store deli manager recommendation. Glucose 111(H) 70 - 99 mg/dL LAB CHEMISTRY METHOD 12/10/2024 3:[address] [facility] BUN 16 9 - 23 mg/dL LAB CHEMISTRY METHOD 12/10/2024 3:[address] [facility] Creatinine 0.99 0.70 - 1.30 mg/dL LAB CHEMISTRY METHOD 12/10/2024 3:[address] [facility] eGFR 80 >=60 mL/min/1. 73m2 LAB CHEMISTRY METHOD 12/10/2024 3:[address] [facility] Comment:Calculation based on the??Chronic Kidney Disease Epidemiology Collaboration (CKD-EPI) equation refit??without adjustment for race. BUN/Creatinine Ratio 16.2 10.0 - 20.0 LAB CHEMISTRY METHOD 12/10/2024 3:[address] [facility] Calcium 9.6 8.3 - 10.6 mg/dL LAB CHEMISTRY METHOD 12/10/2024 3:[address] [facility] AST (SGOT) 23 13 - 40 unit/L LAB CHEMISTRY METHOD 12/10/2024 3:21 PM EST [facility] ALT (SGPT) 35 9 - 40 unit/L LAB CHEMISTRY METHOD 12/10/2024 3:21 PM EST [facility] Alkaline Phosphatase 92 50 - 136 unit/L LAB CHEMISTRY METHOD 12/10/2024 3:21 PM EST [facility] Total Protein 6.3 5.7 - 8.2 g/dL LAB CHEMISTRY METHOD 12/10/2024 3:21 PM EST [facility] Globulin, Total 2.6(L) 2.7 - 4.3 g/dL LAB CHEMISTRY METHOD 12/10/2024 3:21 PM EST [facility] A/G Ratio 1.4 LAB CHEMISTRY METHOD 12/10/2024 3:21 PM EST [facility] Total Bilirubin 0.8 0.0 - 1.0 mg/dL LAB CHEMISTRY METHOD 12/10/2024 3:21 PM EST [facility] Albumin 3.7 3.2 - 4.5 g/dL LAB CHEMISTRY METHOD 12/10/2024 3:21 PM EST [facility] Blood Venous blood specimen / Unknown Venipuncture / Unknown 12/10/2024 2:15 PM EST 12/10/2024 2:25 PM EST us Sherly Castillo MD LAB BLOOD ORDERABLES Final Result [facility] [address] [place] [address], [place] [phone] from Last 3 [place] [phone] [employer] MED[employer]ARE ADVANTAGE Advance Directives * Full [...] currently active code status orders. Care Teams Mold Release Worker Relationship Specialty Start Date End Date Physician, Pcp Unknown PCP - General 12/10/24
== END 2025-02-22 12:43 | disposition home or self-care (01) ==
LOC: HO.CT 12:42
PROVIDERS: PCP Internal Medicine; Visit Provider Internal Medicine Pulmonary Disease
DX: Z12.2 Encounter for screening for malignant neoplasm of respiratory organs (principal); Z87.891 Personal history of nicotine dependence; J43.9 Emphysema, unspecified
CPT/HCPCS: 71271; 94010; 94640; 94727; 94729

== ENCOUNTER → 2025-02-22 12:49 | Outpatient (BNV) | payer MEDICARE, SELFPAY | PROVIDERS: PCP Internal Medicine; Visit Provider Radiology Diagnostic Radiology | DX: Z12.2 Encounter for screening for malignant neoplasm of respiratory organs (principal); Z87.891 Personal history of nicotine dependence; J44.9 Chronic obstructive pulmonary disease, unspecified | CPT/HCPCS: 71271 ==

== ENCOUNTER → 2025-02-22 13:51 | Outpatient (BNV) | payer MEDICARE, SELFPAY | PROVIDERS: PCP Internal Medicine; Visit Provider Hospitalist | DX: J43.9 Emphysema, unspecified (principal); Z87.891 Personal history of nicotine dependence | CPT/HCPCS: 94060; 94727; 94729 ==

== ENCOUNTER 2025-03-25 14:03 | Outpatient (AMB) | payer MEDICARE, SELFPAY ==
[2025-03-25 14:05] VITALS: BP 109/60; PULSE 94; O2SAT 95; BMI 24.4
--- NOTE | 2025-03-25 14:05 | MHC.OFFVIS ---
Vital Signs 03/25/25 14:05 Height 5 ft 7 in Weight 156 lb BMI 24.4 BP 109/60 Blood Pressure Location Lt brachial Position Sitting Pulse 94 Pulse Source Pulse Oximeter Pulse Oximetry (%) 95 Oxygen Delivery Method Room Air Intake Visit Reasons: personal hx of nicotine dependence Allergies No Known Allergies Allergy (Verified 12/29/24 15:25) HPI HPI personal hx of nicotine dependence: Details: 74-year-old gentleman, recent 40+ pack-year smoker, with recent hospitalization for what appears to be COPD exacerbation referred for pulmonary evaluation. Patient states that he does not have prior pulmonary function testing. He currently using Wixela and Combivent with reasonable control of his symptoms. He does have family history of lung cancer in his mother and his sister. Patient has been employed with no exposure to industrial dusts. Patient does complain of unintended weight loss of approximately 10 lb over last month. After the last office visit patient completed his lung cancer screening CT chest that did not demonstrate any worrisome pulmonary nodules. He did complete his pulmonary function test that showed underlying COPD with significant air trapping. He has been using Wixela with good symptom control. He denies recent exacerbations. [facility] Social History (Updated 12/29/24 @ 15:26 by Anitha Oscar Felipe) Patient Tobacco Use Status: Former Tobacco user Tobacco use type: Cigarette Years Smoked: started age 15, 2PPD, quit November 2024 Review of Systems Const Denies daytime sleepiness, Denies excessive sweating, Denies fatigue, Denies fever(s), Denies lethargy, Denies malaise, Denies night sweats, Denies snoring and Denies weight loss Eyes Denies blurry vision and Denies itchy eyes ENT Denies nasal congestion, Denies post nasal drip, Denies sinus pain, Denies sinus pressure and Denies other ( Thrush) Card Denies chest pain, Denies pedal edema, Denies dyspnea, Denies orthopnea and Denies paroxysmal nocturnal dyspnea Resp Denies cough, Denies hemoptysis, Denies excessive phlegm production, Denies dyspnea, Denies snoring and Denies wheezing GI Denies abdominal pain and Denies heartburn Musc Denies myalgias, Denies arthralgias and Denies joint swelling Skin/Breast Denies rash Neuro Denies memory loss and Denies seizure-like activity Psych Denies abnormal sleep pattern, Denies anxiety and Denies memory loss Endo Denies excessive sweating, Denies fatigue and Denies heat intolerance Eddie/Lymph Denies easy bruising Aller/Immun Denies itchy eyes, Denies seasonal rhinorrhea and Denies wheezing Physical Exam Vital Signs: Last Vital Signs Pulse 94 03/25/25 14:05 BP 109/60 03/25/25 14:05 Pulse Ox 95 03/25/25 14:05 Oxygen Delivery Method Room Air 03/25/25 14:05 BMI result Body Mass Index 24.4 Const General: no acute distress and alert Nutritional Appearance: not obese Orientation/consciousness: Other orientation findings ( oriented) HEENT Head: Yes atraumatic Eyes General: appearance normal, both eyes and all related structures Sclerae: sclerae normal EOM: EOMs intact bilaterally Neck Neck: Yes supple Lymphatic: no lymphadenopathy noted Resp Effort & Inspection: normal respiratory effort and no use of accessory muscles Auscultation: clear to auscultation bilaterally Cardio Rate: regular rate Rhythm: regular rhythm Heart sounds: no gallops, no murmurs and no rubs Skin General skin exam: other ( warm) Extrem General: No clubbing, No cyanosis and No edema Assessment & Plan Assessment & Plan (1) Pulmonary emphysema: Code(s): J43.9 - Emphysema, unspecified Category: Medical Plan: Well controlled current regimen of Wixela and albuterol MDI. Continue current regimen. (2) Personal history of nicotine dependence: Code(s): Z87.891 - Personal history of nicotine dependence Category: Medical Plan: Results of lung cancer screening CT chest reviewed, no worrisome nodules. Coding Level of Care Code Est Pt Level 4 (66102) Diagnoses Pulmonary emphysema J43.9 Personal history of nicotine dependence Z87.891
--- OUTSIDE RECORDS SUMMARY | 2025-03-25 14:05 | XMS_ITS | Clinical Summary ---
Author Organization [facility] Address [address] [place] [phone] Phone Care Team Providers Care Technology Manager Name Role Phone Physician, Pcp Unknown Primary [...] mouth at bedtime. 30 each 1 Active Social History Tobacco Use Types Packs/Day Years [...] 60-74 years 1-dose series) 2010 COVID-19 Vaccine (2023-2 5 season) 2024 Abdominal Aortic Aneurysm (AAA) [...] on patient's age to complete this topic Insurance [employer] MEDICARE ADVANTAGE Advance Directives * [...] currently active code status orders. Care Teams Technology Manager Relationship Specialty Start Date End Date Physician, Pcp Unknown PCP - General 12/10/24
== END 2025-03-25 14:30 | disposition home or self-care (01) ==
LOC: HO.HPS 14:04
PROVIDERS: PCP Nurse Practitioner Family; Visit Provider Internal Medicine Pulmonary Disease
DX: J43.9 Emphysema, unspecified (principal); Z87.891 Personal history of nicotine dependence
CPT/HCPCS: 99214

== ENCOUNTER → 2025-03-25 14:03 | Outpatient (BNVA) | payer MEDICARE, SELFPAY | PROVIDERS: PCP Nurse Practitioner Family; Visit Provider Internal Medicine Pulmonary Disease | DX: J43.9 Emphysema, unspecified (principal); Z87.891 Personal history of nicotine dependence | CPT/HCPCS: 99212 ==